=== PATIENT | female | born 1975 | race Caucasian/White ===

== ENCOUNTER 2016-06-27 11:56 | Emergency (ER) | payer OTHER ==
[2016-06-27 12:41] LABS: Bilirubin Negative (Negative); Blood, Urine Negative (Negative); Clarity Clear (Clear); Glucose, Urine (Dipstick) 500 mg/dL (Negative); Leukocyte Negative (Negative); Nitrite Negative (Negative); Protein, Urine (Dipstick) Negative (Neg-Trace); Urobilinogen 0.2 mg/dL (0.2-1.0); pH, Urine 6.5 (5.0-9.0)
[2016-06-27 13:15] LABS: Specific Gravity, Urine 1.008 (1.002-1.036)
[2016-06-27 13:16] LABS: Pregnancy Test - Urine (BHCG) NEGATIVE (NEGATIVE); Specific Gravity 1.008 (1.002-1.036)
[2016-06-27 13:17] LABS: Pregu Control Bar Appear? YES (CONTROL BAR)
[2016-06-27 13:21] LABS: ALT (SGPT) 12 U/L (0-55); AST (SGOT) 14 U/L (5-34); Albumin 3.9 g/dL (3.5-5.0); Alkaline Phosphatase 54 U/L (40-150); Anion Gap 13 mmol/L (10-20); BUN (Urea Nitrogen) 8 mg/dL (7.0-18.7); Bilirubin, Total 0.3 mg/dL (0.2-1.2); Calc. Creatinine Clearance 0 mL/min (70-130); Carbon Dioxide 24 mmol/L (22-29); Chloride 104 mmol/L (98-107); Estimated GFR-MDRD 80; Glucose 205 mg/dL (70-105); Potassium 4.1 mmol/L (3.5-5.1); Protein, Total 6.9 g/dL (6.0-8.3); Sodium 137 mmol/L (136-145)
[2016-06-27 13:29] LABS: #Basophils 0.1 thou/uL (0.0-0.2); #Eosinphils 0.1 thou/uL (0.0-0.7); #Lymphocytes 1.6 thou/uL (1.20-3.40); #Monocytes 0.4 thou/uL (0.11-0.59); #Neutrophils 3.8 thou/uL (1.40-6.50); %Basophils 1.7 % (0.0-1.0); %Eosinophils 1.4 % (0.0-10.0); %Lymphocytes 26.7 % (21.0-51.0); %Monocytes 5.9 % (0.0-10.0); %Neutrophils 64.2 % (42.0-75.0); Mean Corpuscular Hemoglobin 28.8 pg (27.0-31.0); Mean Corpuscular Volume 87.1 fl (81.0-99.0); Mean Platelet Volume 10.2 fL (7.4-10.4); Platelet Count 240 thou/uL (130-400); Red Blood Cell (RBC) Count 4.17 mill/uL (4.20-5.40); White Blood Cell (WBC) Count 5.8 thou/uL (4.8-10.8)
--- NOTE | 2016-06-27 14:21 | ULT ---
ULTRASOUND PELVIS COMPLETE: HISTORY: Pelvic pain 2-3 days. History of PCOS. COMPARISON: None. TECHNIQUE: Real-time, barrow scale, color Doppler, and spectral analysis of the pelvis was performed using transa bdominal and transvaginal approach. FINDINGS: The uterus measures 6.5 x 4.3 x 3.9 cm. Endometrial thickness is 1.4 cm. The right ovary measures 3.6 x 1.7 x 3.4 cm. Adequate vascular flow. There is a 2.1 cm cyst. The left ovary measures 3.5 x 2.3 x 1.6 cm with a 1.6 cm cyst. Adequate flow is documented to both ovaries. No free fluid. IMPRESSION: Bilateral ovarian cyst. Normal vascular flow. No acute pelvic abnormality. POS: [facility]
[2016-06-27] MEDS ORDERED: cefTRIAXone\\ROCEPHIN 250 MG VIAL ONE (16:43)
[2016-06-27] MEDS ORDERED: Sodium Chloride 0.9% 100 ML ONE (16:43)
[2016-06-29 00:43] LABS: Chlamydia by PCR Not Detected (NotDetected); GC by PCR Not Detected (NotDetected)
== END 2016-06-27 17:25 | disposition home or self-care (01) ==
LOC: NAV ERS 11:56
DX: N83.202 Unspecified ovarian cyst, left side (principal); N83.201 Unspecified ovarian cyst, right side; I10 Essential (primary) hypertension; E11.9 Type 2 diabetes mellitus without complications; F41.9 Anxiety disorder, unspecified; Z79.84 Long term (current) use of oral hypoglycemic drugs; Z79.899 Other long term (current) drug therapy
CPT/HCPCS: 76856; 80053; 81003; 81025; 85025; 87086; 87480; 87491; 87510; 87591; 87660; 96365; 96375; J0696; J2270

== ENCOUNTER 2016-11-01 13:49 | Emergency (ER) | payer OTHER | END 2016-11-01 14:20 | disposition home or self-care (01) | LOC: NAV ERS 13:49 | DX: M54.2 Cervicalgia (principal); M25.512 Pain in left shoulder; I10 Essential (primary) hypertension; E11.9 Type 2 diabetes mellitus without complications; F41.9 Anxiety disorder, unspecified; Z79.899 Other long term (current) drug therapy; Z79.84 Long term (current) use of oral hypoglycemic drugs | CPT/HCPCS: 99283 ==

== ENCOUNTER 2017-03-02 16:37 | Emergency (ER) | payer OTHER ==
[2017-03-02] MEDS ORDERED: Ibuprofen 800 MG TAB ONE (17:11)
[2017-03-02] MEDS ORDERED: Oseltamivir 75 MG CAP ONE (17:11)
== END 2017-03-02 17:19 | disposition home or self-care (01) ==
LOC: NAV ERS 16:37
DX: J11.1 Influenza due to unidentified influenza virus with other respiratory manifestations (principal); I10 Essential (primary) hypertension; E11.9 Type 2 diabetes mellitus without complications; F41.9 Anxiety disorder, unspecified; Z79.84 Long term (current) use of oral hypoglycemic drugs; Z79.899 Other long term (current) drug therapy
CPT/HCPCS: 99283

== ENCOUNTER 2018-04-12 11:07 | Emergency (ER) | payer OTHER ==
[2018-04-12] MEDS ORDERED: Ketorolac Tromethamine 30 MG/ML VIAL ONE (11:41)
== END 2018-04-12 11:58 | disposition home or self-care (01) ==
LOC: NAV ERS 11:07
DX: M54.42 Lumbago with sciatica, left side (principal); I10 Essential (primary) hypertension; F41.9 Anxiety disorder, unspecified; F32.9 Major depressive disorder, single episode, unspecified; Z79.84 Long term (current) use of oral hypoglycemic drugs; Z79.899 Other long term (current) drug therapy; Z79.82 Long term (current) use of aspirin
CPT/HCPCS: 96372; J1885

== ENCOUNTER 2018-04-19 13:53 | Emergency (ER) | payer OTHER ==
[2018-04-19 14:20] LABS: Bilirubin Negative (Negative); Blood, Urine Large (Negative); Clarity Cloudy (Clear); Glucose, Urine (Dipstick) Negative (Negative); Leukocyte Small (Negative); Nitrite Positive (Negative); Protein, Urine (Dipstick) 100 mg/dL (Neg-Trace); Urobilinogen 0.2 mg/dL (0.2-1.0)
[2018-04-19 14:32] LABS: Bacteria/HPF 1+ HPF (None Seen); Other Microscopic Description NO; RBC/HPF GREATER THAN 50-TNTC HPF (0-3)
--- NOTE | 2018-04-19 15:19 | CT ---
ABDOMEN CT WITHOUT CONTRAST PELVIC CT WITHOUT CONTRAST: HISTORY: Urinary tract infection. COMPARISON: None. TECHNIQUE: Abdomen and pelvic CT performed without IV or oral contrast. Coronal reformatted images are submitte d for interpretation. FINDINGS: ABDOMEN CT: Lung mcguire are clear. Heart size is within normal limits. No pericardial effusion. The descending t horacic aorta and abdominal aorta have a normal caliber. No periaortic fat stranding. Limited evaluation of the solid organs by the lack of IV contrast. Grossly, no solid organ abnormali ty. No gastrohepatic, retrocrural, or periportal lymphadenopathy. There is evidence of bariatric surgery. Bilaterally, no hydronephrosis, nephrolithiasis, or perinephric fat stranding. There is a right extr arenal pelvis. Bilateral ureters have a normal caliber. No hydroureter, periureteral fat stranding, or ureterolithiasis. No mesenteric mass, lymphadenopathy, free air, or free fluid. There is a ventral abdominal hernia containing multiple segments of small bowel and mesentery. The h ernia defect is quite large, measuring 5.3 cm. No associated bowel incarceration or obstruction. Ad ditional smaller ventral hernia containing mesentery. There is a normal-appearing ileocecal junction . Normal-appearing appendix. Scattered fecal material in a nondistended, nondilated colon. Occasio nal diverticulum. No diverticulitis. CT PELVIS: No lymphadenopathy, free air, or free fluid. Unremarkable urinary bladder. Uterus and left adnexa a re unremarkable. There is a hypodensity associated with the right adnexa measuring 3.9 x 3.7 cm, lik orlin representing a large right ovarian cyst. No lytic or blastic lesion in the osseous structures. IMPRESSION: 1. Probable cyst in the right ovary. Nonemergent followup ultrasound in 8-10 weeks. 2. Normal-caliber appendix. 3. No evidence of obstructive uropathy. 4. A large ventral abdominal hernia containing segments of mesentery small bowel. No associated bow el incarceration at this time. POS: [facility]
== END 2018-04-19 15:38 | disposition home or self-care (01) ==
LOC: NAV ERS 13:53
DX: N39.0 Urinary tract infection, site not specified (principal); N83.201 Unspecified ovarian cyst, right side; K43.9 Ventral hernia without obstruction or gangrene; I10 Essential (primary) hypertension; E11.9 Type 2 diabetes mellitus without complications; F32.9 Major depressive disorder, single episode, unspecified; F41.9 Anxiety disorder, unspecified; Z79.899 Other long term (current) drug therapy; Z79.84 Long term (current) use of oral hypoglycemic drugs
CPT/HCPCS: 74176; 81003; 81015; 87077; 87086; 87186

== ENCOUNTER 2020-03-17 07:04 | Emergency (ER) | payer SELFPAY ==
[2020-03-17] MEDS ORDERED: Mag-Al Plus 1200 MG/1200 MG/120 MG/30 ML UDCUP ONE (07:24)
[2020-03-17] MEDS ORDERED: Lidocaine 2% PF 100 mg/5 ml Syringe ONE (07:24)
[2020-03-17] MEDS ORDERED: Lidocaine Viscous Sol 2% 15 ml UD Cup ONE (07:25)
[2020-03-17] MEDS ORDERED: Morphine 2 MG/ML SYRINGE ONE (07:32)
[2020-03-17] MEDS ORDERED: Famotidine/PF 20 mg/2ml Vial ONE (07:32)
--- NOTE | 2020-03-17 07:54 | RAD ---
Chest one view HISTORY: Chest pain. COMPARISON: 12/05/2014. FINDINGS: Cardiac silhouette is magnified by projection. Pulmonary vasculature are unremarkable. Mediastinum is midline. No confluent airspace consolidation or evidence of pneumothorax. IMPRESSION : No abnormalities are demonstrated.
--- NOTE | 2020-03-17 08:04 | CT ---
CT abdomen and pelvis noncontrast HISTORY: Flank pain. COMPARISON: 04/19/2018. FINDINGS: Each renal collecting system, ureter, and urinary bladder are decompressed without stone ev ident. There is prominent multilevel degenerative changes throughout the lumbar spine. Central canal stenosi s most severe at the L3-4 and L4-5 levels. Prominent degenerative changes of the hips also apparent. Lack of contrast limits evaluation of the soft tissues. Small hiatal hernia and bariatric surgical ch anges of the stomach. No evidence of bowel obstruction. Appendix not inflamed. Large amount of stool throughout the colon. Abdominal fat and a large amount of nonobstructed small bowel protruding through an umbilical hernia is similar in appearance to the prior study. A smaller supraumbilical hernia containing a portion of a loop of nonobstructed small bowel is slightly larger than on the prior exam. IMPRESSION : No evidence of urinary tract obstruction or calcification. Anterior abdominal wall hernias, as detailed above, containing nonobstructed small bowel. Prominent degenerative changes lumbar spine with severe central canal stenoses at the L3-4 and L4-5 l evels.
[2020-03-17 08:12] LABS: #Basophils 0.1 thou/uL (0.0-0.2); #Eosinphils 0.1 thou/uL (0.0-0.7); #Monocytes 0.5 thou/uL (0.11-0.59); #Neutrophils 4.9 thou/uL (1.40-6.50); %Basophils 1.5 % (0.0-1.0); %Eosinophils 1.7 % (0.0-10.0); %Lymphocytes 34.1 % (21.0-51.0); %Monocytes 6.2 % (0.0-10.0); %Neutrophils 56.5 % (42.0-75.0); Hemoglobin 11.5 g/dL (12.0-16.0); Mean Corpuscular HGB CONC 32.6 g/dL (32.0-36.0); Mean Corpuscular Hemoglobin 26.2 pg (27.0-31.0); Mean Corpuscular Volume 80.4 fL (78.0-98.0); Mean Platelet Volume 8.6 fL (7.4-10.4); Platelet Count 425 thou/uL (130-400); RBC Distribution Width 16.7 % (11.5-14.5); White Blood Cell (WBC) Count 8.7 thou/uL (4.8-10.8)
[2020-03-17 08:12] LABS: Bilirubin Negative (Negative); Blood, Urine Negative (Negative); Clarity Clear (Clear); Glucose, Urine (Dipstick) Negative (Negative); Ketone, Urine Negative (Negative); Leukocyte Negative (Negative); Nitrite Negative (Negative); Protein, Urine (Dipstick) Negative (Neg-Trace); Specific Gravity, Urine 1.015 (1.005-1.030); Urobilinogen 0.2 mg/dL (Less than 2)
[2020-03-17 08:29] LABS: ALT (SGPT) 16 U/L (8-55); AST (SGOT) 17 U/L (5-34); Albumin 4.4 g/dL (3.5-5.0); Alkaline Phosphatase 28 U/L (40-110); Anion Gap 17 mmol/L (10-20); BUN (Urea Nitrogen) 9 mg/dL (7.0-18.7); Bilirubin, Total 0.2 mg/dL (0.2-1.2); CK (CPK) 83 U/L (29-168); Calc. Creatinine Clearance 0 mL/min (70-130); Calcium 9.2 mg/dL (7.8-10.44); Carbon Dioxide 25 mmol/L (22-29); Chloride 96 mmol/L (98-107); Globulin 2.6 g/dL (2.4-3.5); Glucose 124 mg/dL (70-105); Lipase 27 U/L (8-78); Potassium 4.2 mmol/L (3.5-5.1); Sodium 134 mmol/L (136-145)
== END 2020-03-17 09:00 | disposition home or self-care (01) ==
LOC: NAV ERS 07:04
DX: R10.13 Epigastric pain (principal); M19.90 Unspecified osteoarthritis, unspecified site; I10 Essential (primary) hypertension; E11.39 Type 2 diabetes mellitus with other diabetic ophthalmic complication; H42 Glaucoma in diseases classified elsewhere; Z79.84 Long term (current) use of oral hypoglycemic drugs; Z79.82 Long term (current) use of aspirin; Z79.899 Other long term (current) drug therapy
CPT/HCPCS: 71045; 74176; 80053; 81003; 82550; 83690; 84484; 85025; 93005; 96374; 96375; J2001; J2270; S0028

== ENCOUNTER 2021-11-08 07:43 | Emergency (ER) | payer OTHER ==
[2021-11-08] MEDS ORDERED: Lidocaine 2% Jelly 5 ML TUBE ONE (08:36)
[2021-11-08] MEDS ORDERED: HYDROcodone/Acetaminophen 5/325 mg Tablet ONE (08:48)
== END 2021-11-08 09:00 | disposition home or self-care (01) ==
LOC: NAV ERS 07:43
DX: T21.62XA Corrosion of second degree of abdominal wall, initial encounter (principal)
CPT/HCPCS: 99283

== ENCOUNTER 2022-01-02 03:21 | Emergency (ER) | payer OTHER ==
[2022-01-02] MEDS ORDERED: Azithromycin 250 MG TAB ONE (04:18)
== END 2022-01-02 04:25 | disposition home or self-care (01) ==
LOC: NAV ERS 03:21
DX: J01.90 Acute sinusitis, unspecified (principal); E11.9 Type 2 diabetes mellitus without complications; E78.00 Pure hypercholesterolemia, unspecified; Z79.84 Long term (current) use of oral hypoglycemic drugs; Z79.82 Long term (current) use of aspirin
CPT/HCPCS: 99283